=== PATIENT | female | born 1950 | race Caucasian/White ===

== ENCOUNTER 2020-07-15 16:51 | Emergency (ER) | payer BC, OTHER ==
[2020-07-15 17:05] VITALS: BP 137/76; PULSE 75; TEMP 98.7; BMI 50.1
== END 2020-07-15 20:34 | disposition home or self-care (01) ==
LOC: JER 16:51
DX: M25.561 Pain in right knee (principal); S00.83XA Contusion of other part of head, initial encounter
CPT/HCPCS: 70450-TC; 73562-TC-RT-FY; 73590-TC-RT-FY; 93971-TC; 99285-25

== ENCOUNTER 2022-05-10 04:25 | Day surgery (SDC) | payer OTHER ==
[2022-05-06 14:02] VITALS: BMI 42.4
[2022-05-10 07:17] VITALS: RESP 20
[2022-05-10] MEDS ORDERED: LIDOCAINE HCL/PF 2% SDV 5ML VIAL ONE (07:29)
[2022-05-10] MEDS ORDERED: LIDOCAINE HCL/PF 1% SDV 5ML VIAL ONE (07:29)
[2022-05-10 10:11] VITALS: BP 118/68; PULSE 65; TEMP 97.8
== END 2022-05-10 11:00 | disposition home or self-care (01) ==
LOC: JASU-SURG 04:25
PROVIDERS: ATTEND Pain Medicine Pain Medicine
PROC: 01HY3MZ Insertion of Neurostimulator Lead into Peripheral Nerve, Percutaneous Approach (ICD-10-PCS; principal; 2022-05-10 08:32)
DX: G89.4 Chronic pain syndrome (principal); M25.561 Pain in right knee
CPT/HCPCS: 64555; C1778

== ENCOUNTER 2022-05-31 04:05 | Day surgery (SDC) | payer OTHER ==
[2022-05-29 11:57] VITALS: BMI 42.4
[2022-05-31] MEDS ORDERED: LIDOCAINE HCL/PF 1% SDV 5ML VIAL ONE (07:43)
[2022-05-31] MEDS ORDERED: LIDOCAINE 1% P/F 10 MG/ML VIAL PNB ONE (09:40)
[2022-05-31 10:28] VITALS: RESP 18
[2022-05-31 11:14] VITALS: BP 139/59; PULSE 73; TEMP 98.2
== END 2022-05-31 11:25 | disposition home or self-care (01) ==
LOC: JASU-SURG 04:05
PROVIDERS: ATTEND Pain Medicine Pain Medicine
PROC: 01HY3MZ Insertion of Neurostimulator Lead into Peripheral Nerve, Percutaneous Approach (ICD-10-PCS; principal; 2022-05-31 10:30)
DX: G89.4 Chronic pain syndrome (principal); M25.562 Pain in left knee
CPT/HCPCS: 64555; C1778

== ENCOUNTER 2022-07-09 04:04 | Day surgery (SDC) | payer OTHER ==
[2022-07-02 18:08] VITALS: BMI 41.0
[~2022-07-09 04:04] MED LIST: ACETAMINOPHEN 500 MG TABLET (FP) PO PRN; LIDOCAINE 1% P/F 10 MG/ML VIAL PNB ONE
[2022-07-09 06:54] VITALS: RESP 20
[2022-07-09] MEDS ORDERED: LIDOCAINE HCL/PF 2% SDV 5ML VIAL ONE (07:14)
[2022-07-09] MEDS ORDERED: TRIAMCINOLONE ACET 40MG/1ML VIAL ONE (07:14)
[2022-07-09] MEDS ORDERED: LIDOCAINE 1% P/F 10 MG/ML VIAL PNB ONE (09:13)
[2022-07-09 11:02] VITALS: BP 137/66; PULSE 58; TEMP 97.3
[2022-07-09] MEDS ORDERED: ACETAMINOPHEN 500 MG TABLET (FP) PO PRN ×2 (15:44)
== END 2022-07-09 11:00 | disposition home or self-care (01) ==
LOC: JASU-SURG 04:04
PROVIDERS: ATTEND Pain Medicine Pain Medicine
PROC: 01HY3MZ Insertion of Neurostimulator Lead into Peripheral Nerve, Percutaneous Approach (ICD-10-PCS; principal; 2022-07-09 09:00)
DX: G89.4 Chronic pain syndrome (principal); M25.562 Pain in left knee
CPT/HCPCS: 64555; C1897; C1778

== ENCOUNTER → 2022-08-14 | Day surgery (SDC) | payer OTHER | END | disposition home or self-care (01) | LOC: JMAMMOTONE 07:25 | PROVIDERS: ATTEND Registered Nurse | PROC: 0H9T3ZX Drainage of Right Breast, Percutaneous Approach, Diagnostic (ICD-10-PCS; principal; 2022-08-14) | DX: C50.911 Malignant neoplasm of unspecified site of right female breast (principal) | CPT/HCPCS: 19083; 77065-TC; 87899; 88305-TC; 88341-TC; 88342-TC; A4648 ==

== ENCOUNTER → 2022-09-30 | Day surgery (SDC) | payer OTHER | END | disposition home or self-care (01) | LOC: JMAMMO-SUR 08:34 | PROVIDERS: ATTEND Surgery Surgical Oncology | PROC: BH00ZZZ Plain Radiography of Right Breast (ICD-10-PCS; principal; 2022-09-30) | DX: C50.911 Malignant neoplasm of unspecified site of right female breast (principal) | CPT/HCPCS: 19281; A4648 ==

== ENCOUNTER 2022-10-02 03:52 | Day surgery (SDC) | payer OTHER ==
[2022-10-01 09:30] VITALS: BMI 39.2
[2022-10-02] MEDS ORDERED: ceFAZolin 2 GRAM PREMIX BAG IVPB ONE (08:45)
[2022-10-02] MEDS ORDERED: BUPIVACAINE HCL/PF 0.25% (2.5MG/ML) 10 ML VIAL IJ ONE (08:45)
[2022-10-02] MEDS ORDERED: MIDAZOLAM HCL 2 MG/2 ML SINGLE DOSE VIAL ONE ×2 (08:49→09:49)
[2022-10-02] MEDS ORDERED: PROPOFOL 20 ML ONE (08:49)
[2022-10-02] MEDS ORDERED: DEXAMETHASONE SOD PHOSPHATE 4 MG/1 ML VIAL ONE (08:50)
[2022-10-02] MEDS ORDERED: ONDANSETRON 4 MG/2 ML VIAL ONE (08:50)
[2022-10-02] MEDS ORDERED: KETOROLAC TROMETHAMINE 30 MG/1 ML VIAL ONE (08:50)
[2022-10-02] MEDS ORDERED: BUPIVACAINE HCL/PF 0.5% (5MG/ML) 10 ML VIAL IJ ONE (09:56)
[2022-10-02] MEDS ORDERED: HYDROmorphone HCl 2 MG/ML VIAL ONE (09:58)
[2022-10-02] MEDS ORDERED: BENZOIN/ALOE VERA/STORAX/TOLU 58 ML BOTTLE ONE (10:27)
[2022-10-02] MEDS ORDERED: oxyCODONE HCL 5 MG TABLET PO PRN (10:46)
[2022-10-02] MEDS ORDERED: ONDANSETRON 4 MG/2 ML VIAL IVPUSH PRN (10:46)
[2022-10-02] MEDS ORDERED: LACTATED RINGERS SOLUTION 1,000 ML IV SCH (11:00)
[2022-10-02 13:30] VITALS: RESP 18
[2022-10-02 13:49] VITALS: BP 110/70; PULSE 68; TEMP 98
== END 2022-10-02 14:15 | disposition home or self-care (01) ==
LOC: JASU-SURG 03:52
PROVIDERS: ATTEND Surgery Surgical Oncology
PROC: 0HBT0ZZ Excision of Right Breast, Open Approach (ICD-10-PCS; principal; 2022-10-02 09:00)
DX: C50.911 Malignant neoplasm of unspecified site of right female breast (principal)
CPT/HCPCS: 76098-TC-FY; 88307-TC; 94760